=== PATIENT | male | born 1990 | race Caucasian/White ===

== ENCOUNTER 2017-09-09 16:20 | Emergency (ER) | payer MEDICAID, OTHER ==
[~2017-09-09] VITALS: Ht 167.6 cm; Wt 124.7 kg
[~2017-09-09 16:20] MED LIST: ALBU8.5H3 INH; BECL8.7A INH; CETI10CA PO; GUAI118L94 PO; IBUP400T22 PO; PRED50TA PO
[2017-09-09 16:23] VITALS: Ht 167.6 cm; Wt 124.7 kg
[2017-09-09] MEDS ORDERED: PRED20TA PO (17:35)
[2017-09-09] MEDS ORDERED: AZIT250T94 PO (17:35)
[2017-09-09] MEDS ORDERED: ALBU8.5H3 INH (17:35)
--- NOTE | 2017-09-09 17:38 | ERD ---
ER Documentation Chief Complaint Chief Complaint Complains of SOB Hx of Asthma HPI This is a 26-year-old male who does not have a history of asthma. He states that he has had a cough with yellow productive sputum for the past 2-3 days. He is having no fever no chest pain no shortness of breath. The patient says she has had bronchitis before and this is the same presentation. No abdominal pain vomiting diarrhea no palpitations or dizziness. ROS All systems reviewed and are negative except as per history of present illness. Medications Home Meds Active Scripts Albuterol Sulfate* (Proair HFA*) 8.5 Gm Hfa.aer.ad, 2 PUFF INH Q4, #1 INHALER Prov:EDEL BEAULIEU DO 09/09/17 Prednisone* (Prednisone*) 20 Mg Tab, 60 MG PO DAILY for 5 Days, TAB Prov:EDEL BEAULIEU DO 09/09/17 Azithromycin* (Zithromax*) 250 Mg Tablet, 250 MG PO .NikkiPACK DIRECTED, #6 TAB TAKE 500 MG (2 TABS) THE FIRST DAY THEN 250 MG (1 TAB) DAYS 2-5 Prov:EDEL BEAULIEU DO 09/09/17 Ibuprofen* (Ibuprofen*) 400 Mg Tablet, 400 MG PO Q6H Y for PAIN AND OR ELEVATED TEMP, #30 TAB Prov:RUBEN PINZON NP 12/15/15 Cetirizine Hcl* (Zyrtec*) 10 Mg Capsule, 10 MG PO DAILY, #30 TAB Prov:RUBEN PINZON NP 12/15/15 Guaifenesin-Codeine Phosphate* (Guaifenesin* with Codeine Liq) 120 Ml Liquid, 5 ML PO Q4H for COUGH, #60 ML Prov:RUBEN PINZON NP 12/15/15 Prednisone* (Prednisone*) 50 Mg Tablet, 50 MG PO DAILY for 5 Days, TAB Prov:RUBEN PINZON NP 12/15/15 Albuterol Sulfate* (Proair HFA*) 8.5 Gm Hfa.aer.ad, 2 PUFF INH Q4H Y for WHEEZING AND SOB, #1 INHALER Prov:RUBEN PINZON NP 12/15/15 Beclomethasone Dip* (Qvar 40*) 7.3 Gm Inha, 2 PUFF INH BID, #1 INH Prov:RUBEN PINZONJose SALESPERSON [employer] 12/15/15 Reported Medications Albuterol Sulfate* (Proair HFA*) Unknown Strength Hfa.aer.ad, INH Q4H Y for WHEEZING AND SOB, #1 INHALER 12/15/15 Allergies Allergies: Coded Allergies: No Known Allergy (Unverified , 02/02/15) PMhx/Soc Medical and Surgical Hx: pt denies Surgical Hx History of Surgery: No Anesthesia Reaction: No Hx Neurological Disorder: No Hx Respiratory Disorders: Yes (Asthma; bronchitis) Hx Cardiac Disorders: No Hx Psychiatric Problems: No Hx Alcohol Use: Yes (SOCIALLY) Hx Substance Use: No Hx Tobacco Use: No Smoking Status: Never smoker FmHx Family History: No coronary disease Physical Exam Vitals Vital Signs Date Time Temp Pulse Resp B/P Pulse Ox O2 Delivery O2 Flow Rate FiO2 09/09/17 16:23 98.3 113 20 172/91 98 Physical Exam Const: Well-developed, well-nourished Head: Atraumatic, normocephalic Eyes: Normal Conjunctiva, PERRLA, EOMI, normal sclera, no nystagmus ENT: Normal External Ears, Nose and Mouth, moist mucus membranes. Neck: Full range of motion. No meningismus, no lymphadenopathy. Resp: Clear to auscultation bilaterally, no wheezing, rhonchi, rales Cardio: Regular rate and rhythm, no murmurs, S1 S2 present Abd: Soft, non tender x 4, non distended. Normal bowel sounds, no guarding or rebound, no pulsitile abdominal masses or bruits Skin: No petechiae or rashes, no ecchymosis , no maculopapular rash Back: No midline or flank tenderness Ext: No cyanosis, or edema, FROM x 4, normal inspection, neurovascularly intact x 4 Neur: Awake and alert, STR 5/5 x 4, sensation intact x 4, no focal findings, cerebellum intact Psych: Normal Mood and Affect Procedures/MDM Patient has clear breath sounds. Patient has bronchitis/viral URI we will treat accordingly with Zithromax prednisone and albuterol inhaler Departure Diagnosis: Primary Impression: Acute bronchitis Bronchitis organism: unspecified organism Qualified Code: J20.9 - Acute bronchitis, unspecified organism Condition: Stable Patient Instructions: What Is Bronchitis? Referrals: DOCTOR,NOT ON STAFF (PCP) EDEL BEAULIEU DO Sep 09, 2017 17:38
[2017-09-09 18:11] VITALS: BP 125/74; PULSE 78; RESP 18; TEMP 98.6
== END 2017-09-09 18:12 | disposition home or self-care (01) ==
LOC: FTE 16:20
DX: J20.9 Acute bronchitis, unspecified (principal); J45.909 Unspecified asthma, uncomplicated
CPT/HCPCS: 99284

== ENCOUNTER 2017-12-17 07:42 | Emergency (ER) | END 2017-12-17 11:02 | disposition home or self-care (01) ==

== ENCOUNTER 2019-04-18 22:10 | Emergency (ER) | payer OTHER ==
[~2019-04-18] VITALS: Ht 177.8 cm; Wt 140.2 kg
[~2019-04-18 22:10] MED LIST changes: +ALBU18HF INHALATION; -ALBU8.5H3 INH; +ALBU8.5H8 INH; +AZIT250T PO; +IBUP-1541 PO; -IBUP400T22 PO; +PRED20TA PO
[2019-04-18 22:11] VITALS: Ht 177.8 cm; Wt 140.2 kg
[2019-04-18] MEDS ORDERED: ALBUTEROL 0.083% (NEB) 2.5 MG/3 ML AMP HHN STA (22:37)
[2019-04-18] MEDS ORDERED: GUAIFENESIN LA 600 MG TABSR PO ONE (23:00)
[2019-04-18] MEDS ORDERED: IPRATROPIUM (NEB) 0.5 MG/2.5 ML AMP HHN ONE (23:00)
[2019-04-18] MEDS ORDERED: PROMETHAZINE/CODEINE 5ML CUP PO ONE (23:00)
[2019-04-18] MEDS ORDERED: DEXAMETHASONE 10 MG/ML 1 ML INJ IM ONE (23:00)
[2019-04-18] MEDS ORDERED: ALBU2.5V3 NEB (23:46)
[2019-04-18] MEDS ORDERED: MONT10TA21 PO (23:46)
[2019-04-18] MEDS ORDERED: ALBU18HF INHALATION (23:46)
[2019-04-18] MEDS ORDERED: PROM5SYR2 PO (23:46)
[2019-04-18] MEDS ORDERED: [UNRECOGNIZED DRUG - CODE] IH (23:46)
[2019-04-18] MEDS ORDERED: [UNRECOGNIZED DRUG - CODE] PO (23:46)
[2019-04-18] MEDS ORDERED: CETI10TA19 PO (23:46)
[2019-04-19 00:02] VITALS: BP 134/77; PULSE 88; RESP 20
--- NOTE | 2019-04-19 16:59 | ERD ---
ER Documentation Chief Complaint Chief Complaint ST AND COUGH [id number]; HX OF ASTHMA HPI History of Present Illness: 28-year-old male who reports a past medical history of asthma coming in today with complaint of sore throat and productive cough with yellow phlegm for 1 week. Associated symptoms include postnasal drip, mild shortness of breath with exertion. Patient reports being a tobacco and marijuana user. Denies fever, chills, decreased appetite, malaise. Denies chest pain, severe shortness of breath, palpitations. At home pharmacological/nonpharmacological treatment for symptoms: Ventolin Denies social concerns; Denies recent foreign travel ROS All systems reviewed and are negative except as per history of present illness. Medications Home Meds Active Scripts Guaifenesin (Guaifenesin) 1,200 Mg Tab.er.12h, 1200 MG PO BID for CHEST CONGESTION/MUCUS for 7 Days, #30 TAB Prov:SEEMA ARCEO NP 04/18/19 Promethazine HCl/Codeine (Prometh-Codein 6.25-10 mg/5 ml) 5 Ml Syrup, 5 ML PO Q6 for allergies/severe cough, #120 Prov:SEEMA ARCEO NP 04/18/19 Montelukast Sodium* (Singulair*) 10 Mg Tablet, 10 MG PO QHS for ashtma maintenace/allergies, #30 TAB 1 Refill Prov:SEEMA ARCEO NP 04/18/19 Cetirizine Hcl* (Cetirizine Hcl*) 10 Mg Tablet, 10 MG PO DAILY for allergies/cough/runny nose, #30 TAB Prov:SEEMA ARCEO NP 04/18/19 Albuterol Sulfate* (Dalyolin HFA*) 18 Gm Hfa.aer.ad, 2 PUFF INHALATION Q4H, #1 INHALER Prov:SEEMA ARCEO NP 04/18/19 Ipratropium [place] neb (Ipratropium [place] neb) 0.2 Mg/Ml Solution, 0.5 MG IH Q8 PRN for SHORTNESS OF BREATH, #30 EA Mixed with albuterol nebulizer treatments for shortness of breath with chest congestion/productive cough/phlegm. Prov:SEEMA ARCEO NP 04/18/19 Albuterol Sulfate* (Albuterol Sulfate* Neb) 0.083%-3 Ml Neb, 2.5 MG NEB Q4 PRN for SHORTNESS OF BREATH, #30 EA 1 Refill Prov:SEEMA ARCEO NP 04/18/19 Prednisone (Prednisone) 20 Mg Tablet, 20 MG PO BID for 5 Days, #10 TAB Prov:DAVID ALVAREZ PA-C 12/17/17 Albuterol Sulfate* (Ventolin HFA*) 18 Gm Hfa.aer.ad, 2 PUFF INHALATION Q4H, #1 INHALER Prov:DAVID ALVAREZ PA-C 12/17/17 Albuterol Sulfate* (Proair HFA*) 8.5 Gm Hfa.aer.ad, 2 PUFF INH Q4, #1 INHALER Prov:EDEL BEAULIEU DO 09/09/17 Prednisone* (Prednisone*) 20 Mg Tab, 60 MG PO DAILY for 5 Days, TAB Prov:SYED BEAULIEUSTLYNDA Burt DO 09/09/17 Azithromycin* (Zithromax*) 250 Mg Tablet, 250 MG PO .NATACHA DIRECTED, #6 TAB TAKE 500 MG (2 TABS) THE FIRST DAY THEN 250 MG (1 TAB) DAYS 2-5 Prov:EDEL BEAULIEU DO 09/09/17 Ibuprofen* (Ibuprofen*) 400 Mg Tablet, 400 MG PO Q6H PRN for PAIN AND OR ELEVATED TEMP, #30 TAB Prov:RUBEN PINZON NP 12/15/15 Cetirizine Hcl* (Zyrtec*) 10 Mg Capsule, 10 MG PO DAILY, #30 TAB Prov:RUBEN PINZON NP 12/15/15 Guaifenesin-Codeine Phosphate* (Guaifenesin* with Codeine Liq) 120 Ml Liquid, 5 ML PO Q4H for COUGH, #60 ML Prov:RUBEN PINZON NP 12/15/15 Prednisone* (Prednisone*) 50 Mg Tablet, 50 MG PO DAILY for 5 Days, TAB Prov:RUBEN PINZON NP 12/15/15 Albuterol Sulfate* (Proair HFA*) 8.5 Gm Hfa.aer.ad, 2 PUFF INH Q4H PRN for WHEEZING AND SOB, #1 INHALER Prov:CUISIARUBEN CONFIGURATION TECHNICIAN 12/15/15 Beclomethasone Dip* (Qvar 40*) 7.3 Gm Inha, 2 PUFF INH BID, #1 INH Prov:RUBEN PINZON BRADEN John CONFIGURATION TECHNICIAN 12/15/15 Reported Medications Albuterol Sulfate* (Proair HFA*) Unknown Strength Hfa.aer.ad, INH Q4H PRN for WHEEZING AND SOB, #1 INHALER 12/15/15 Allergies Allergies: Coded Allergies: No Known Allergy (Unverified , 02/02/15) PMhx/Soc History of Surgery: No Anesthesia Reaction: No Hx Neurological Disorder: No Hx Respiratory Disorders: Yes (Asthma; bronchitis) Hx Cardiac Disorders: No Hx Psychiatric Problems: No Hx Alcohol Use: Yes (SOCIALLY) Hx Substance Use: Yes (MARIJUANA ) Hx Tobacco Use: Yes Smoking Status: Current some day smoker FmHx Family History: diabetes; No coronary disease Physical Exam Vitals Vital Signs Date Temp Pulse Resp B/P (MAP) Pulse Ox O2 O2 Flow FiO2 Time Delivery Rate 04/19/19 98.6 88 20 134/77 99 Room Air 00:02 (96) 04/18/19 88 22 98 21 22:58 04/18/19 99.0 105 18 143/84 97 22:11 (103) Physical Exam Const: No acute distress, afebrile Head: Atraumatic Eyes: Normal Conjunctiva ENT: Normal External Ears, Nose and Mouth. Neck: Full range of motion. No meningismus. Resp: Expiratory wheezing and coarse crackles to auscultation bilaterally Cardio: Tachycardia 107, no murmurs Abd: Soft, non tender, non distended. No guarding, no masses, no rigidity Skin: No petechiae or rashes Back: No midline or flank tenderness Ext: No cyanosis, or edema Neur: Awake and alert x3, speaking in clear sentences, no focal deficits or facial asymmetry Psych: Normal Mood and Affect Results 24 hrs Current Medications Medications Dose Sig/Abel Start Time Status Last (Trade) Ordered Route PRN Stop Time Admin Dose Reason Admin Albuterol 5 mg ONCE STAT 04/18/19 DC 04/18/19 (Proventil HHN 22:37 22:58 0.083% (Neb)) 04/18/19 22:39 Ipratropium 0.5 mg ONCE ONCE 04/18/19 DC 04/18/19 [place] HHN 23:00 22:58 (Atrovent 04/18/19 23:01 0.02% (Neb)) 10 mg ONCE ONCE 04/18/19 DC 04/18/19 Dexamethasone IM 23:00 22:45 (Decadron) 04/18/19 23:01 Guaifenesin 1,200 mg ONCE ONCE 04/18/19 DC 04/18/19 (Mucinex) PO 23:00 23:03 04/18/19 23:01 Promethazine 10 ml ONCE ONCE 04/18/19 DC 04/18/19 HCl/ PO 23:00 22:46 Codeine 04/18/19 23:01 (Phenergan/ Codeine) Procedures/MDM ED course includes a thorough examination and history. ED course includes RT consult Medications: Nebulizer treatments including albuterol and Atrovent, dexamethasone, promethazine/codeine, guaifenesin Imaging: Labs: Low suspicion for life-threatening medical emergency. Low suspicion for infectious process that requires antibiotics at this time. Low suspicion for cardiopulmonary emergency that requires hospitalization or immediate surgical intervention patient presenting with constellation of symptoms likely representing asthma with acute exacerbation and bronchitis as characterized by history, physical exam findings. Patient reassessment 0055: Patient hemodynamically stable. No respiratory distress, otherwise relatively well appearing and nontoxic. Wheezing and crack les significantly decrease. disposition given. Patient educated on diagnoses, prescriptions, follow-up care, return precautions. Strict return precautions given for worsening condition; questions answered discharge. Patient verbalizes understanding of discharge instructions, plan of care, return precautions, follow-up care. Disposition for discharge with followup in 2 days with PCP/clinic. Departure Diagnosis: Primary Impression: Bronchitis Additional Impressions: Asthma with acute exacerbation Asthma severity: unspecified severity Asthma persistence: unspecified Qualified Codes: J45.901 - Unspecified asthma with (acute) exacerbation Medication refill Allergic rhinitis Condition: Stable Patient Instructions: Asthma, Acute (Adult), Bronchitis With Wheezing (Adult) Referrals: COMMUNITY CLINICS YOU HAVE RECEIVED A MEDICAL SCREENING EXAM AND THE RESULTS INDICATE THAT YOU DO NOT HAVE A CONDITION THAT REQUIRES URGENT TREATMENT IN THE EMERGENCY DEPARTMENT. FURTHER EVALUATION AND TREATMENT OF YOUR CONDITION CAN WAIT UNTIL YOU ARE SEEN IN YOUR DOCTORS OFFICE WITHIN THE NEXT 1-2 DAYS. IT IS YOUR RESPONSIBILITY TO MAKE AN APPOINTMENT FOR FOLOW-UP CARE. IF YOU HAVE A PRIMARY DOCTOR --you should call your primary doctor and schedule an appointment IF YOU DO NOT HAVE A PRIMARY DOCTOR YOU CAN CALL OUR PHYSICIAN REFERRAL HOTLINE AT IF YOU CAN NOT AFFORD TO SEE A PHYSICIAN YOU CAN CHOSE FROM THE FOLLOWING [facility] [address] [facility] [address] [facility] [address] [facility] [address] [facility] [address] [facility]. [facility] [address] [facility]. [facility] YOU HAVE RECEIVED A MEDICAL SCREENING EXAM AND THE RESULTS INDICATE THAT YOU DO NOT HAVE A CONDITION THAT REQUIRES URGENT TREATMENT IN THE EMERGENCY DEPARTMENT. FURTHER EVALUATION AND TREATMENT OF YOUR CONDITION CAN WAIT UNTIL YOU ARE SEEN IN YOUR DOCTORS OFFICE WITHIN THE NEXT 1-2 DAYS. IT IS YOUR RESPONSIBILITY TO MAKE AN APPOINTMENT [facility] IF YOU HAVE A PRIMARY DOCTOR --you should call your primary doctor and schedule and appointment IF YOU DO NOT HAVE A PRIMARY DOCTOR YOU CAN CALL OUR PHYSICIAN REFERRAL HOTLINE AT . IF YOU CAN NOT AFFORD TO SEE A PHYSICIAN YOU CAN CHOSE FROM THE FOLLOWING [facility] [address] [place] [address] [facility] [address] [place] [address] [facility] [address] [place] [address] Additional Instructions: Thank you very much for allowing us to participate in your care. Your health and safety is our top priority at [facility]. It is important to read all discharge instructions and education provided in your discharge packet. Call your primary care doctor TOMORROW for an appointment during the next 2-4 days and bring all the information and medications prescribed. Have prescriptions filled and follow precisely the directions on the label. -Albuterol/ipratropium are both nebulizer treatment. This medication is used to treat or prevent bronchospasm, and dry up secretions. This can be used to treat wheezing, shortness of breath, cough. --Montelukast/Singulair is a medication that will help decrease the inflammation in the lungs caused by allergens in the air. This medication is for asthma patients. Talk to your golf player assistant/primary care doctor regarding continuing this medication as part of Yash's asthma treatment plan. -Cetirizine as an antihistamine that should not cause drowsiness; take this medication every day for allergy-like symptoms/cough/runny nose. -Guaifenesin as a mucolytic. This medication will help loosen secretions and cough them up. --Promethazine/codeine is a cough syrup but also contains an antihistamine. T his medication may cause drowsiness. Take this medication as needed for cough and symptoms. If the symptoms get worse and your provider is unavailable, return to the Emergency Department immediately. SEEMA ARCEO NP Apr 19, 2019 16:59
== END 2019-04-19 00:04 | disposition home or self-care (01) ==
LOC: FTE 22:10
DX: J40 Bronchitis, not specified as acute or chronic (principal); F17.210 Nicotine dependence, cigarettes, uncomplicated; J30.9 Allergic rhinitis, unspecified; Z76.0 Encounter for issue of repeat prescription
CPT/HCPCS: 94664; 96372; 99284; J1100